=== PATIENT | female | born 1945 | race Caucasian/White ===

== ENCOUNTER 2017-01-12 10:21 | Outpatient (CLI) | payer OTHER ==
--- NOTE | 2017-01-12 11:04 | DIAGNOSTIC IMAGING REPORT ---
PROCEDURE: XR FOOT 3 VIEWS - LEFT INDICATION: HEMATOMA TECHNIQUE: Three views. COMPARISON: None. FINDINGS: Osseous structures and joint spaces are normal. There is no fracture or dislocation. IMPRESSION: 1. Normal left foot.
== END 2017-01-12 23:00 ==
LOC: XR SRH 10:21
DX: T14.8 Other injury of unspecified body region (principal)